=== PATIENT | male | born 1955 | race Hispanic/Latino ===

== ENCOUNTER 2020-03-23 14:46 | Inpatient (IN) | payer SELFPAY ==
[2020-03-23] VITALS (17 sets, daily range): BP systolic 110–146; BP diastolic 63–92
[~2020-03-23] VITALS: Ht 160 cm; Wt 77.1 kg
[2020-03-23] MEDS ORDERED: SODIUM CHLORIDE 0.9% 1000ML 1,000 ML IV STA (14:51)
[2020-03-23] MEDS ORDERED: MORPHINE SULFATE INJ 2 MG/ML SYR IV NR (15:01)
[2020-03-23] MEDS ORDERED: ONDANSETRON HCL INJ 2MG/ML 2ML 2 MG/ML VIAL IV NR (15:01)
[2020-03-23 15:05] LABS: BASOPHILS # (AUTO) 0.1 (0.0-0.1); BASOPHILS % 0.5 % (0.0-1.0); EOSINOPHILS # (AUTO) 0.1 (0.0-0.4); EOSINOPHILS % 0.8 % (0.0-6.0); HEMATOCRIT 47.4 % (38.2-49.6); HEMOGLOBIN 15.8 g/dL (14.0-18.0); LYMPHOCYTES # (AUTO) 2.9 (1.0-3.2); LYMPHOCYTES % 25.9 % (18.0-39.1); MEAN CORPUSCULAR HEMOGLOBIN 28.7 pg (28-32); MEAN CORPUSCULAR HGB CONC 33.3 g/dL (31-35); MEAN CORPUSCULAR VOLUME 86.2 fL (81-99); MONOCYTES # (AUTO) 0.7 (0.2-0.8); MONOCYTES % 6.6 % (4.4-11.3); NEUTROPHILS # (AUTO) 7.3 (2.1-6.9); NEUTROPHILS % 65.8 % (38.7-80.0); PLATELET COUNT 269 x10e3/uL (140-360); RED CELL DISTRIBUTION WIDTH 12.8 % (11.7-14.4)
[2020-03-23] MEDS ORDERED: MORPHINE SULFATE INJ 2 MG/ML SYR IV PRN ×2 (15:15→21:15)
[2020-03-23 15:17] LABS: INR 0.95; PROTHROMBIN TIME 13.2 seconds (11.9-14.5)
[2020-03-23 15:27] LABS: ALBUMIN 4.9 g/dL (3.5-5.0); ALBUMIN/GLOBULIN RATIO 1.3 (0.8-2.0); ANION GAP 18.3 mmol/L (8-16); CALCIUM 9.2 mg/dL (8.4-10.2); CREATININE, SERUM 1.24 mg/dL (0.72-1.25); POTASSIUM 4.3 mmol/L (3.5-5.1)
[2020-03-23 15:33] LABS: CREATINE KINASE MB 9.9 ng/mL (0-5.0)
[2020-03-23] MEDS: FAMOTIDINE 20 MG/2 ML VIAL IV SCH (15:36)
[2020-03-23] MEDS ORDERED: HEPARIN SOD (PORCINE) 1000 UNIT/ML 30ML ONE (15:37)
[2020-03-23] MEDS ORDERED: HEPARIN SOD/SOD CHLORIDE 2,000 ML ONE (15:37)
[2020-03-23] MEDS ORDERED: LIDOCAINE HCL 2% LOCAL 20 ML VIAL ONE (15:37)
[2020-03-23] MEDS ORDERED: NITROGLYCERIN/D5W 200 MCG/ML 250 ML ONE (15:38)
[2020-03-23] MEDS ORDERED: IOPAMIDOL 370 MG/ML 200 ML INFUS..BTL INJ ONE ×2 (15:38→16:18)
[2020-03-23] MEDS ORDERED: SODIUM CHLORIDE 0.9% 1000ML 1,000 ML ONE (15:38)
[2020-03-23] MEDS ORDERED: HEPARIN SOD (PORCINE) 1000 UNIT/ML SDV ONE (15:45)
[2020-03-23] MEDS ORDERED: FENTANYL CITRATE/PF 100MCG/2 ML INJ ONE (15:53)
[2020-03-23] MEDS ORDERED: MIDAZOLAM HCL 2 MG/2 ML VIAL ONE ×2 (15:53→16:18)
[2020-03-23] MEDS ORDERED: TICAGRELOR 90 MG TABLET ONE (16:28)
[2020-03-23] MEDS ORDERED: ATORVASTATIN 20 MG TAB PO SCH (21:00)
[2020-03-23] MEDS ORDERED: SODIUM CHLORIDE 0.9% 1000ML 1,000 ML IV ONE (21:15)
[2020-03-23] MEDS ORDERED: METFORMIN HCL500 MG PO (21:58)
[2020-03-23] MEDS ORDERED: GLIPIZIDE5 MG PO (21:58)
[2020-03-23] MEDS: ONDANSETRON HCL INJ 2MG/ML 2ML 2 MG/ML VIAL IV PRN (23:30)
[2020-03-24] VITALS (8 sets, daily range): BP systolic 121–138; BP diastolic 63–77
[2020-03-24] MEDS: FAMOTIDINE 20 MG/2 ML VIAL IV SCH (03:25)
[2020-03-24 05:14] LABS: BASOPHILS % 0.3 % (0.0-1.0); HEMATOCRIT 42.9 % (38.2-49.6); HEMOGLOBIN 14.6 g/dL (14.0-18.0); LYMPHOCYTES # (AUTO) 1.1 (1.0-3.2); LYMPHOCYTES % 7.9 % (18.0-39.1); MEAN CORPUSCULAR HEMOGLOBIN 29.3 pg (28-32); MEAN CORPUSCULAR VOLUME 86.1 fL (81-99); MONOCYTES # (AUTO) 1.1 (0.2-0.8); MONOCYTES % 7.9 % (4.4-11.3); NEUTROPHILS # (AUTO) 11.4 (2.1-6.9); NEUTROPHILS % 83.5 % (38.7-80.0); PLATELET COUNT 241 x10e3/uL (140-360); RED BLOOD COUNT 4.98 x10e6/uL (4.3-5.7); RED CELL DISTRIBUTION WIDTH 12.9 % (11.7-14.4)
[2020-03-24 05:49] LABS: ALANINE AMINOTRANSFERASE 110 IU/L (0-55); ALBUMIN/GLOBULIN RATIO 1.3 (0.8-2.0); ALKALINE PHOSPHATASE 80 IU/L (40-150); BLOOD UREA NITROGEN 15 mg/dL (7-26); BUN/CREATININE RATIO 17 (6-25); CALCIUM 8.4 mg/dL (8.4-10.2); CARBON DIOXIDE 20 mmol/L (22-29); CHLORIDE 103 mmol/L (98-107); CHOL/HDL RATIO 4.5 (3.9-4.7); CHOLESTEROL 198 MD/DL (0-199); CREATININE, SERUM 0.88 mg/dL (0.72-1.25); EST GLOMERULAR FILTRATION RATE > 60 ML/MIN (60-); GLUCOSE 273 mg/dL (74-118); HDL CHOLESTEROL 44 MG/DL (40-60); LDL CHOLESTEROL 130 MG/DL (60-130); SODIUM 138 mmol/L (136-145); TRIGLYCERIDES 118 MG/DL (0-149)
[2020-03-24] MEDS ORDERED: DEXTROSE 50% SYRINGE 50 ML IV PRN (07:00)
[2020-03-24] MEDS: INSULIN LISPRO 100 UNIT/1 ML 3ML VIAL SQ SCH ×4 (07:30→21:53)
[2020-03-24] MEDS: ONDANSETRON HCL INJ 2MG/ML 2ML 2 MG/ML VIAL IV PRN (07:30)
[2020-03-24] MEDS: CLOPIDOGREL BISULFATE 75 MG TAB PO SCH (08:30)
[2020-03-24] MEDS: ASPIRIN 81 MG ENTERIC COATED PO SCH (08:30)
[2020-03-24] MEDS: PANTOPRAZOLE 40 MG 10ML VIAL IV SCH (08:35)
[2020-03-24 13:44] LABS: CREATINE KINASE MB 70.9 ng/mL (0-5.0)
[2020-03-24 18:12] LABS: CHOL/HDL RATIO 4.4 (3.9-4.7)
[2020-03-24 18:25] LABS: HIV 1&2 AB SCREEN NON-REACTIVE (NONREACTIVE)
[2020-03-24 18:35] LABS: FERRITIN 187.82 ng/mL (21.81-274.66); THYROID STIMULATING HORMONE 0.545 uIU/mL (0.350-4.940)
[2020-03-24] MEDS ORDERED: ATORVASTATIN 40 MG TAB PO SCH (21:00)
[2020-03-25] VITALS: BP 123/75
[2020-03-25 04:00] VITALS: BP 130/80
[2020-03-25 05:59] LABS: BASOPHILS % 0.4 % (0.0-1.0); EOSINOPHILS # (AUTO) 0.1 (0.0-0.4); EOSINOPHILS % 0.5 % (0.0-6.0); HEMATOCRIT 40.3 % (38.2-49.6); HEMOGLOBIN 13.8 g/dL (14.0-18.0); LYMPHOCYTES # (AUTO) 1.5 (1.0-3.2); LYMPHOCYTES % 13.6 % (18.0-39.1); MEAN CORPUSCULAR HEMOGLOBIN 29.2 pg (28-32); MEAN CORPUSCULAR HGB CONC 34.2 g/dL (31-35); MEAN CORPUSCULAR VOLUME 85.4 fL (81-99); MONOCYTES # (AUTO) 1.1 (0.2-0.8); MONOCYTES % 10.1 % (4.4-11.3); NEUTROPHILS # (AUTO) 8.3 (2.1-6.9); PLATELET COUNT 216 x10e3/uL (140-360); RED BLOOD COUNT 4.72 x10e6/uL (4.3-5.7); RED CELL DISTRIBUTION WIDTH 13.1 % (11.7-14.4)
[2020-03-25 06:25] LABS: ALANINE AMINOTRANSFERASE 61 IU/L (0-55); ALBUMIN 3.6 g/dL (3.5-5.0); ALBUMIN/GLOBULIN RATIO 1.2 (0.8-2.0); ALKALINE PHOSPHATASE 71 IU/L (40-150); ANION GAP 13.9 mmol/L (8-16); BLOOD UREA NITROGEN 15 mg/dL (7-26); BUN/CREATININE RATIO 16 (6-25); CALCIUM 8.2 mg/dL (8.4-10.2); CARBON DIOXIDE 24 mmol/L (22-29); CHLORIDE 102 mmol/L (98-107); CREATININE, SERUM 0.94 mg/dL (0.72-1.25); EST GLOMERULAR FILTRATION RATE > 60 ML/MIN (60-); GLUCOSE 232 mg/dL (74-118); POTASSIUM 3.9 mmol/L (3.5-5.1); SODIUM 136 mmol/L (136-145)
[2020-03-25 08:00] VITALS: BP 129/78
[2020-03-25] MEDS: INSULIN LISPRO 100 UNIT/1 ML 3ML VIAL SQ SCH ×3 (08:25→16:45)
[2020-03-25] MEDS: ASPIRIN 81 MG ENTERIC COATED PO SCH (08:29)
[2020-03-25] MEDS: CLOPIDOGREL BISULFATE 75 MG TAB PO SCH (08:29)
[2020-03-25] MEDS: PANTOPRAZOLE 40 MG 10ML VIAL IV SCH (08:29)
[2020-03-25 08:31] VITALS: BP 129/78
[2020-03-25] MEDS ORDERED: METOPROLOL SUCCINATE 25 MG TAB XL PO SCH (11:00)
[2020-03-25] MEDS ORDERED: LISINOPRIL 2.5 MG TAB PO ONE (11:00)
[2020-03-25 12:00] VITALS: BP 124/74
[2020-03-25 16:00] VITALS: BP 115/74
[2020-03-25] MEDS ORDERED: METOPROLOL SUCC25 MG PO (16:19)
[2020-03-25] MEDS ORDERED: LISINOPRIL2.5 MG PO (16:20)
[2020-03-25] MEDS ORDERED: ATORVASTATIN CA20 MG PO (18:22)
[2020-03-25] MEDS ORDERED: ASPIRIN81 MG PO (18:23)
[2020-03-25] MEDS ORDERED: PLAVIX75 MG PO (18:23)
[2020-03-25] MEDS ORDERED: PROTONIX20 MG PO (18:24)
[2020-03-26] MEDS ORDERED: LISINOPRIL 2.5 MG TAB PO SCH (09:00)
[2020-03-26 16:54] LABS: ALPHA-1-ANTITRYPSIN 121 mg/dL (101-187)
[2020-03-28 06:12] LABS: ENDOMYSIAL ANTIBODIES, IGA Negative (Negative)
== END 2020-03-25 19:03 | disposition home or self-care (01) | DRG 247 ==
LOC: ER 15:01 → UNDOADMIN 15:10 → ERHOLD 15:10 → CATH LAB 15:51 → MED/SURG2 19:05 → MED/SURG3 03-24 18:25
PROVIDERS: ADMIT Family Medicine; ATTEND Family Medicine
PROC: 027034Z Dilation of Coronary Artery, One Artery with Drug-eluting Intraluminal Device, Percutaneous Approach (ICD-10-PCS; principal; 2020-03-23)
PROC: 4A023N7 Measurement of Cardiac Sampling and Pressure, Left Heart, Percutaneous Approach (ICD-10-PCS; 2020-03-23)
PROC: B2111ZZ Fluoroscopy of Multiple Coronary Arteries using Low Osmolar Contrast (ICD-10-PCS; 2020-03-23)
PROC: B2151ZZ Fluoroscopy of Left Heart using Low Osmolar Contrast (ICD-10-PCS; 2020-03-23)
DX: I21.4 Non-ST elevation (NSTEMI) myocardial infarction (principal); I10 Essential (primary) hypertension; E78.5 Hyperlipidemia, unspecified; E11.9 Type 2 diabetes mellitus without complications; I25.10 Atherosclerotic heart disease of native coronary artery without angina pectoris; Z20.828 Contact with and (suspected) exposure to other viral communicable diseases; K21.00 Gastro-esophageal reflux disease with esophagitis, without bleeding; K76.0 Fatty (change of) liver, not elsewhere classified; Z86.16 Personal history of COVID-19
CPT/HCPCS: 36415; 71045; 76700; 80053; 80061; 82103; 82105; 82550; 82553; 82728; 82784; 82948; 83036; 83516; 83540; 83735; 83880; 84443; 84466; 84484; 85025; 85610; 85730; 86039; 86255; 86256; 87390; 92928; 93005; 93307; 93458; 99152; 99153; 99284; C1725; C1769; C1874; C1887; G0433; G0435; J1644; J2001; J2250; J2270; J2405; J3010; J7030; Q9967; U0002